=== PATIENT | male | born 1990 | race Caucasian/White ===

== ENCOUNTER 2017-04-30 04:09 | Emergency (ER) | payer OTHER ==
[~2017-04-30 04:09] MED LIST: ADDERALL20 MG PO; ORUDIS75 M1 PO
== END 2017-04-30 05:19 | disposition home or self-care (01) ==
LOC: CED 04:09
DX: L02.414 Cutaneous abscess of left upper limb (principal); E11.9 Type 2 diabetes mellitus without complications; F17.210 Nicotine dependence, cigarettes, uncomplicated; Z88.2 Allergy status to sulfonamides; Z91.030 Bee allergy status; Z88.8 Allergy status to other drugs, medicaments and biological substances
CPT/HCPCS: 10060; 90715; 99283

== ENCOUNTER 2017-05-02 19:56 | Emergency (ER) | payer OTHER ==
--- NOTE | ~2017-05-02 | CR173 ---
[facility] A Service of [facility] RADIOLOGY TEXT RESULTS PATIENT: KEN BARRERA LOCATION: [facility] : [birth year] UNIT #: [id number] AGE: [address]: ARNULFO GOMEZ APRN SEX: M ORDER DR: [id number] [place], [place] [address] [id number] MR#: [id number] Acc #: [id number] NAME: KEN BARRERA : 1990 SEX: M STUDY DATE/TIME: 05/02/2017 20:40 UNIT: CFTX ROOM: STUDY DESCRIPTION: CR Knee 3 Views Rt Attending Physician: Arnulfo Gomez Aprn Ordering Physician: Ed Geovanny Vazquez M.D. Primary Care Physician: Josh Soto M.D. MEDICAL IMAGING REPORT This report is preliminary unless electronic signature is present EXAM Three views right knee. DATE 05/02/2017 HISTORY Right knee pain, swelling and tingling since 05/02/2017. No known injury. COMPARISON Right tibia and fibula radiographs 08/15/2013. FINDINGS Prepatellar soft tissue swelling is present, greatest medially. No definite joint effusion is identified. No fracture. No dislocation. No significant osteoarthritic change. IMPRESSION 1. Prepatellar soft tissue swelling, greatest medially. 2. No acute osseous abnormality or significant osteoarthritic change. Dictated by... Lyn Benz M.D. THIS IS AN ELECTRONICALLY VERIFIED REPORT Lyn Benz M.D. at 05/03/2017 10:03 AM [facility]/nadine TD: 05/02/2017 23:09 JOB #: [id number] MEDICAL IMAGING REPORT [facility] A Service [facility] RADIOLOGY TEXT RESULTS PATIENT: KEN BARRERA LOCATION: [facility] : [birth year] UNIT #: [id number] AGE: [address]: ARNULFO GOMEZ APRN SEX: M ORDER DR: Page 1 of 1 COPY
[2017-05-02 22:52] LABS: BASOPHIL# 0.1 X10e3 (0-0.3); BASOPHIL% 0.5 % (0-2.5); DIFF IND NO; EOSINOPHIL# 0.1 X10e3 (0-0.7); EOSINOPHIL% 1.1 % (0.0-7.0); HEMATOCRIT 40.4 % (38.0-50.0); HEMOGLOBIN 13.5 gm/dL (13.0-16.0); LYMPHOCYTE# 1.8 X10e3 (1.0-3.5); LYMPHOCYTE% 15.7 % (17.0-45.0); MEAN CELL VOLUME 80.7 FL (83-96); MEAN CORPUSCULAR HGB CONC 33.5 g/dL (30-36); MEAN PLATELET VOLUME 7.3 FL (6.5-11.5); MONOCYTE# 1.4 X10e3 (0-1.0); MONOCYTE% 11.8 % (3.0-12.0); NEUTROPHIL# 8.3 X10e3 (1.5-7.1); NEUTROPHIL% 70.9 % (40-75); PLATELET COUNT 301 X10e3 (140-420); RED BLOOD COUNT 5.01 X10e (3.90-5.60); RED CELL DISTRIBUTION WIDTH 13.7 % (11.0-15.5); WHITE BLOOD COUNT 11.7 X10e3 (4.0-10.5)
== END 2017-05-03 02:25 | disposition home or self-care (01) ==
LOC: CFTX 19:56 → CED 19:56 → CFTX 20:24
PROVIDERS: Nurse Practitioner Family
DX: M71.161 Other infective bursitis, right knee (principal); L02.512 Cutaneous abscess of left hand; F90.9 Attention-deficit hyperactivity disorder, unspecified type; F17.200 Nicotine dependence, unspecified, uncomplicated; Z88.2 Allergy status to sulfonamides; Z91.030 Bee allergy status
CPT/HCPCS: 36415; 73562; 85025; 85652; 86140; 87040; 96365; 96366; 96375; 99284; J1885; J3370